=== PATIENT | female | born 1975 | race African-American/Black ===

== ENCOUNTER → 2016-09-20 | Outpatient (CLI) | payer BC ==
[~2016-09-20] MED LIST: BCPILLS PO
--- NOTE | 2016-09-20 13:24 | DIAGNOSTIC IMAGING REPORT ---
LEFT LOWER EXTREMITY VENOUS DOPPLER HISTORY: M79.605 Leg pain, anterior, left COMPARISON STUDY: None. FINDINGS: There is normal compressibility, flow, and augmentation within the left lower extremity deep venous system. IMPRESSION: No DVT within the left lower extremity. Electronically signed by: Saurabh Santoyo M.D. 09/20/2016 1:23 PM Dictated Date/Time: 09/20/2016 1:23 PM
== END | disposition home or self-care (01) ==
LOC: C.ULTRBC 12:33
PROVIDERS: ATTEND Physician Assistant
DX: M79.605 Pain in left leg (principal)

== ENCOUNTER → 2017-03-21 | Outpatient (CLI) | payer BC | END | disposition home or self-care (01) | LOC: C.PAPS 11:42 | PROVIDERS: ATTEND Physician Assistant | DX: N89.8 Other specified noninflammatory disorders of vagina (principal) ==

== ENCOUNTER → 2017-03-26 | Outpatient (CLI) | payer BC | END | disposition home or self-care (01) | LOC: C.PAPS 17:39 | PROVIDERS: ATTEND Obstetrics & Gynecology | DX: Z01.419 Encounter for gynecological examination (general) (routine) without abnormal findings (principal) ==

== ENCOUNTER → 2017-06-04 | Outpatient (CLI) | payer OTHER | END | disposition home or self-care (01) | LOC: C.PATHSPEC 15:38 | PROVIDERS: ATTEND Obstetrics & Gynecology | DX: N93.9 Abnormal uterine and vaginal bleeding, unspecified (principal); D25.9 Leiomyoma of uterus, unspecified ==

== ENCOUNTER → 2017-11-23 | Outpatient (CLI) | payer OTHER ==
--- NOTE | 2017-11-23 12:19 | DIAGNOSTIC IMAGING REPORT ---
LEFT KNEE 3 VIEWS HISTORY: Left knee pain. COMPARISON: None. FINDINGS: There is no fracture or dislocation. Small knee effusion. No soft tissue swelling. Cartilage spaces are maintained. Small marginal osteophytes at the medial compartment of the knee suggestive of developing degenerative change. No radiopaque foreign bodies. IMPRESSION: 1. No fracture or dislocation within the left knee. 2. Mild developing osteoarthritis at the medial compartment. 3. Small joint effusion. Electronically signed by: Saurabh Santoyo M.D. 11/23/2017 12:17 PM Dictated Date/Time: 11/23/2017 12:15 PM
== END | disposition home or self-care (01) ==
LOC: C.RAD1850 12:04
PROVIDERS: ATTEND Physician Assistant
DX: M79.605 Pain in left leg (principal)